=== PATIENT | male | born 1960 | race Caucasian/White ===

== ENCOUNTER 2020-03-09 14:36 | Emergency (ER) | payer OTHER, SELFPAY ==
[2020-03-09 14:38] VITALS: BP 172/92; PULSE 71; RESP 14; TEMP 36.9; O2SAT 98; BMI 25.8
--- NOTE | 2020-03-09 14:41 | DI.RAD.S_ITS ---
PROCEDURE: XR FINGER LT MIN 2V INDICATIONS: cut left thumb tablesaw TECHNIQUE: AP hand, 2 views of the left 1st finger(s) acquired. COMPARISON: None. FINDINGS: Bones: No fractures or dislocations. No suspicious bony lesions. Soft tissues: No suspicious soft tissue calcifications. No soft tissue gas or foreign bodies. IMPRESSION: No fracture. No osseous lesion. If symptoms and/or clinical suspicion for pathology persists, further assessment with advanced imaging (e.g. CT, MRI or bone scan) may be helpful. Dictated by: Selam Leavitt MD, PhD on 03/09/2020 at 15:02 Approved by: Selam Leavitt MD, PhD on 03/09/2020 at 15:03
--- NOTE | 2020-03-09 14:47 | ED_ITS ---
HPI - Wound/Laceration <HANY Church - Last Filed: 03/09/20 20:36> General Chief Complaint: Wound/Laceration Stated Complaint: cut left hand thumb Time Seen by Provider: 03/09/20 14:37 Source: patient Mode of arrival: Ambulatory Limitations: no limitations History of Present Illness HPI narrative: 59-year-old male presents emergency department for a laceration to his left thumb, he states he cut it on a table saw today. Patient states he was cutting wood, size small piece of wood in his cut that he was able to wash out. Patient states he wash the area extensively, applied bacitracin and a Band-Aid. Bleeding was controlled with pressure. He states his last Tdap has been a long time ago. He denies any numbness, tingling, difficulty moving his thumb, other injuries, fevers, chills, nausea, vomiting, diarrhea, or any other concerns. Patient states this happened approximately an hour ago. He denies any major allergies or medical issues. Related Data Allergies Allergy/AdvReac Type Severity Reaction Status Date / Time No Known Drug Allergies Allergy Verified 03/09/20 14:42 Review of Systems <HANY Church - Last Filed: 03/09/20 20:36> Review of Systems Narrative: REVIEW OF SYSTEMS: GENERAL: Denies fever or chills. HENT: Denies head trauma. EYE: Denies double vision or vision loss. CARDIOVASCULAR: Denies syncope. MUSCULOSKELETAL: Denies weakness, or deformities. INTEGUMENTARY: Complains of left thumb laceration, see HPI. NEURO: Denies numbness or tingling. Patient History <HANY Church - Last Filed: 03/09/20 20:36> Medical History No significant medical problems (Acute) Social History Smoking Status: Unknown if ever smoked Smoking Status: Unknown if ever smoked alcohol intake frequency: holidays/special occasions only Substance Use Type: does not use Exam <HANY Church - Last Filed: 03/09/20 20:36> Initial Vital Signs Initial Vital Signs: Vital Signs Temperature 98.5 F 03/09/20 14:38 Pulse Rate 71 03/09/20 14:38 Respiratory Rate 14 03/09/20 14:38 Blood Pressure 172/92 H 03/09/20 14:38 Pulse Oximetry 98 03/09/20 14:38 PHYSICAL EXAMINATION: GENERAL: Well groomed, alert, and cooperative. Answers questions promptly and appropriately. Vital signs noted. HENT: Normocephalic, atraumatic. RESPIRATORY: Normal respiratory rate, trachea midline, airway patent. No stridor, nasal flaring or accessory muscle use. MUSCULOSKELETAL: Full range of motion of thumb against resistance including the MIP and MCP joint. Intact light touch sensation intact to thumb to distal and proximal aspect of laceration. Normal gait and coordination. Equal tone and mass bilaterally. EXTREMITIES: CMS intact. Moves all extremities. SKIN: Warm, dry, soft, appropriate color for ethnicity. A 3 cm laceration to left palmar aspect of thumb above MIP joint, small amount of subcutaneous tissue visualized, no foreign bodies. Bleeding controlled with pressure upon arrival. NEURO: Alert and Oriented X 3. Good coordination. PSYCH: Appropriate affect and mood. <Melanie Crowell DO - Last Filed: 03/10/20 07:38> Initial Vital Signs Initial Vital Signs: Vital Signs Temperature 98.5 F 03/09/20 14:38 Pulse Rate 71 03/09/20 14:38 Respiratory Rate 14 03/09/20 14:38 Blood Pressure 172/92 H 03/09/20 14:38 Pulse Oximetry 98 03/09/20 14:38 Procedures <HANY Church - Last Filed: 03/09/20 20:36> Laceration Repair Laceration 1: Site: hand Side (If applicable): left Size (cm): 3 Description: linear Depth: simple, single layer Local Anesthetic: lidocaine 1% and with bicarb Amount of anesthesia used (mL): 5 Pre-repair: wound explored and irrigated extensively Skin layer closed with: nylon Size (cm): 4-0 Number of sutures: 6 Technique: simple, interrupted Course <HANY Church - Last Filed: 03/09/20 20:36> Course Course Narrative: Wound was irrigated extensively with >300ml of NS per nursing. Sutures place, bacitracin applied and wound dressed with tube gauze per nursing. Tdap updated. Orders Ordered: Discontinued Medications Bacitracin (Bacitracin) 1 applic TOP NOW ONE Stop: 03/09/20 14:48 Last Admin: 03/09/20 14:51 Dose: 1 applic Documented by: BRIAN Diphtheria/Tetanus/Acell Pertussis (Adacel) 0.5 ml IM .ONCE ONE Stop: 03/09/20 14:46 Last Admin: 03/09/20 14:51 Dose: 0.5 ml Documented by: BRIAN Lidocaine/Sodium Bicarbonate (Buffered Lidocaine 10 Ml Syr) 10 ml INJ NOW ONE Stop: 03/09/20 14:46 Last Admin: 03/09/20 14:51 Dose: 10 ml Documented by: BRIAN Vital Signs Vital signs: Vital Signs - 8 hr 03/09/20 14:38 03/09/20 15:55 Temperature 98.5 F Pulse Rate 71 53 L Respiratory Rate 14 Blood Pressure 172/92 H 155/92 H Pulse Oximetry 98 98 <Melanie Crowell DO - Last Filed: 03/10/20 07:38> Orders Ordered: Discontinued Medications Bacitracin (Bacitracin) 1 applic TOP NOW ONE Stop: 03/09/20 14:48 Last Admin: 03/09/20 14:51 Dose: 1 applic Documented by: BRIAN Diphtheria/Tetanus/Acell Pertussis (Adacel) 0.5 ml IM .ONCE ONE Stop: 03/09/20 14:46 Last Admin: 03/09/20 14:51 Dose: 0.5 ml Documented by: BRIAN Lidocaine/Sodium Bicarbonate (Buffered Lidocaine 10 Ml Syr) 10 ml INJ NOW ONE Stop: 03/09/20 14:46 Last Admin: 03/09/20 14:51 Dose: 10 ml Documented by: BRIAN Vital Signs Vital signs: Vital Signs - 8 hr 03/09/20 14:38 03/09/20 15:55 Temperature 98.5 F Pulse Rate 71 53 L Respiratory Rate 14 Blood Pressure 172/92 H 155/92 H Pulse Oximetry 98 98 MDM - Wound/Laceration <HANY Church - Last Filed: 03/09/20 20:36> Medical Records Attestation: I reviewed the patient's medical records. Lab Data Attestation: I reviewed the patient's lab results. Imaging Data Extremity x-ray #1: Radiologist's Impression: [address] [address] XRay Report Signed Patient: Juaquin Montenegro LMR#: [id number] : 9Acct:[id number] Age/Sex: 59 / MDate of Service: 03/09/20 Loc: ED Accession Number: [id number] Procedure: XR finger LT min 2V Ordering Provider: Justine Carey PROCEDURE: XR FINGER LT MIN 2V INDICATIONS: cut left thumb tablesaw TECHNIQUE: AP hand, 2 views of the left 1st finger(s) acquired. COMPARISON: None. FINDINGS: Bones: No fractures or dislocations. No suspicious bony lesions. Soft tissues: No suspicious soft tissue calcifications. No soft tissue gas or foreign bodies. IMPRESSION: No fracture. No osseous lesion. If symptoms and/or clinical suspicion for pathology persists, further assessment with advanced imaging (e.g. CT, MRI or bone scan) may be helpful. Dictated by: Selam Leavitt MD, PhD on 03/09/2020 at 15:02 Approved by: Selam Leavitt MD, PhD on 03/09/2020 at 15:03 [facility] Narrative Medical decision making narrative: 59-year-old male presenting to the emergency department for laceration of his left thumb, Simple laceration repair without concern of retained foreign body due to extensive irrigation, examination wound, and x-ray without concerns of bony involvement or foreign body. Wound was repaired with sutures. Dressed with bacitracin. No concern for tendon involvement due to intact range of motion against resistance without difficulty or pain or weakness. Patient was counseled extensively to watch for signs of infection and when to return. Patient agreed to plan of care verbalized understanding. Discharge Plan Departure Patient Disposition: Home Clinical Impression: Laceration Discharge Date/Time: 03/09/20 15:57 Instructions: DI for Laceration Repair Activity Restrictions/Additional Instructions: Thank you for entrusting me with your care today. As discussed, I have placed 6 sutures in your wound today. These will need to be removed in about 10-14 days. We have updated your tetanus. Your x-rays negative for any fractures or f oreign bodies. Please leave the dressing in place for the next 24 hours, after that you may remove the dressing, wash the area gently with soap and water and apply bacitracin. Cover the wound if you are for you may get dirty. While there is low-risk for infection at this time, retained foreign bodies and infection are always possible with any cut or break in the skin. Please monitor the wound closely and be re-evaluated immediately if you develop any signs of infection such as pus, increasing redness, increasing pain, fevers, or any other concerns. Return emergency department for any new or worsening symptoms. <Melanie Crowell, DO - Last Filed: 03/10/20 07:38> Cosign ED Attending Elina Attestation: I was immediately available in the department for consultation. Documentation has been reviewed. I agree with assessment and plan.
[2020-03-09] MEDS: BACITRACIN OINT 0.9 GM PCKT 1 APPLIC TOP (14:51)
[2020-03-09] MEDS: TET,DIPH,PERTUSS(ACELL),VAC/PF 0.5 ML SYRINGE IM (14:51)
[2020-03-09] MEDS: LIDO 1%/SOD BICARB 8.4% (10ML) 10 ML SYRINGE INJ (14:51)
[2020-03-09 15:55] VITALS: BP 155/92; PULSE 53; O2SAT 98
== END 2020-03-09 15:57 | disposition home or self-care (01) ==
PROVIDERS: Emergency Provider Nurse Practitioner
DX: S61.012A Laceration without foreign body of left thumb without damage to nail, initial encounter (principal); W29.3XXA Contact with powered garden and outdoor hand tools and machinery, initial encounter; Z23 Encounter for immunization
CPT/HCPCS: 12002; 73140; 90471; 99283; 99284; 90715

== ENCOUNTER 2020-03-31 10:15 | Emergency (ER) | payer OTHER, SELFPAY ==
[2020-03-31 10:32] VITALS: BP 152/86; PULSE 59; RESP 14; TEMP 36.7; O2SAT 98; BMI 25.1
--- NOTE | 2020-03-31 10:36 | DI.RAD.S_ITS ---
PROCEDURE: XR ANKLE LT MIN 3V INDICATIONS: ankle pain TECHNIQUE: 3 views of the ankle were acquired. COMPARISON: None. FINDINGS: Bones: No fractures or dislocations. Ankle mortise is normally aligned. No suspicious bony lesions. Soft tissues: Mild soft tissue swelling is demonstrated over the lateral malleolus. There is a small tibiotalar joint effusion. Achilles tendon appears normal. IMPRESSION: 1. No fracture or dislocation. Dictated by: Avi Ramsey M.D. on 03/31/2020 at 11:03 Approved by: Avi Ramsey M.D. on 03/31/2020 at 11:27
--- NOTE | 2020-03-31 11:45 | PC.NURSE ---
pt ambulatory back to room ice pack placed on left ankle
--- NOTE | 2020-03-31 11:57 | ED_ITS ---
HPI - Extremity Injury (Lower) <MAXIMINO Miguel - Last Filed: 03/31/20 15:02> General Chief Complaint: Extremity Injury, Lower Stated Complaint: Thinks he fractured his ankle or twisted it. Time Seen by Provider: 03/31/20 11:42 Source: patient Mode of arrival: Ambulatory Limitations: no limitations History of Present Illness HPI Narrative: The patient is a very pleasant 59-year-old male who does not use marijuana who presents with a chief complaint of an injury to his left ankle. He states he was walking and hit a ledge, twisting his ankle in. He endorses feeling a pop. He did not fall and states he did not hurt anything other than his ankle ?. Other than my pride he has not taken anything for pain. Denies any previous injuries to that ankle. States that her hurts a little bit, mostly on the outside part. He was able to ambulate after. He states he is ?limping. Related Data Allergies Allergy/AdvReac Type Severity Reaction Status Date / Time No Known Drug Allergies Allergy Verified 03/09/20 14:42 Review of Systems <MAXIMINO Miguel - Last Filed: 03/31/20 15:02> Review of Systems Narrative: GENERAL: Denies chills, fatigue, malaise, fever, sweats. HEENT: Denies sinus pain, ear pain, sore throat, difficulty swallowing, dizziness. RESPIRATORY: Denies dyspnea, cough, wheezing, hemoptysis, sputum. CARDIOVASCULAR: Denies chest pain, palpitations, orthopnea, edema, GASTROINTESTINAL: Denies nausea, vomiting, abdominal pain, diarrhea, constipation, melena. : Denies dysuria, frequency, incontinence, hematuria, urinary retention. MUSCULOSKELETAL: See HPI SKIN: Denies rash, skin lesions, or other NEUROLOGIC: Denies weakness, headache, numbness, change in speech, confusion, seizures, incoordination. PSYCHIATRIC: No concerning psychosocial issues. 12 point review of systems is negative except for those stated above Patient History <MAXIMINO Miguel - Last Filed: 03/31/20 15:02> Medical History No significant medical problems (Acute) Social History Smoking Status: Unknown if ever smoked Smoking Status: Unknown if ever smoked alcohol intake frequency: 0-2 drinks per day Substance Use Type: does not use Exam <MAXIMINO Miguel - Last Filed: 03/31/20 15:02> Narrative Exam Narrative: GENERAL: This is a well-nourished, well-developed patient, no acute distress HEAD: Atraumatic. Normocephalic. No temporal or scalp tenderness. EYES: Pupils equal round and reactive. Extraocular motions intact. No scleral icterus. No injection or drainage. ENT: Nose without bleeding, purulent drainage or septal hematoma. Throat without erythema, tonsillar hypertrophy or exudate. Uvula midline. Airway patent. NECK: Trachea midline. No JVD or lymphadenopathy. Supple, nontender, no meningeal signs. CARDIOVASCULAR: Regular rate and RESPIRATORY: No cough. No increased respiratory effort. No accessory muscle use. Speaking full sentences. EXTREMITIES: General pain to palpation left ankle, left lateral malleolus has some swelling, positive pedal pulses left foot. Able to flex extend pronate supinate left ankle, though decreased range of motion all hughes. BACK: Nontender without deformity or crepitance. No flank tenderness. NEURO: AOx3. SKIN: Left ankle skin is intact with no lacerations or abrasions. Ecchymosis noted by left lateral malleolus. Initial Vital Signs Initial Vital Signs: Vital Signs Temperature 98.0 F 03/31/20 10:32 Pulse Rate 59 L 03/31/20 10:32 Respiratory Rate 14 03/31/20 10:32 Blood Pressure 152/86 H 03/31/20 10:32 Pulse Oximetry 98 03/31/20 10:32 <Desiree Hernández MD - Last Filed: 03/31/20 16:18> Initial Vital Signs Initial Vital Signs: Vital Signs Temperature 98.0 F 03/31/20 10:32 Pulse Rate 59 L 03/31/20 10:32 Respiratory Rate 14 03/31/20 10:32 Blood Pressure 152/86 H 03/31/20 10:32 Pulse Oximetry 98 03/31/20 10:32 Procedures <MAXIMINO Miguel - Last Filed: 03/31/20 15:02> Orthopedic Splinting/Casting Injury #1: Side: left Lower Extremity Injury Location: ankle Lower Extremity Immobilizer: stirrup splint and Gavino wrap Post splinting neuro exam: intact Post splinting vascular exam: intact Placed by: Nursing Scores <MAXIMINO Miguel - Last Filed: 03/31/20 15:02> GCS Santosh coma scale eye opening: Spontaneous [place] coma scale verbal response: Orientated Santosh coma scale motor response: Obey commands Santosh coma scale total score: 15 Course <MAXIMINO Miguel - Last Filed: 03/31/20 15:02> Orders Ordered: ED Orders 03/31/20 10:36 XR ankle LT min 3V Stat Discontinued Medications Ibuprofen (Advil) 800 mg PO NOW ONE Stop: 03/31/20 11:57 Last Admin: 03/31/20 12:03 Dose: 800 mg Documented by: NOAH Vital Signs Vital signs: Vital Signs - 8 hr 03/31/20 10:32 Temperature 98.0 F Pulse Rate 59 L Respiratory Rate 14 Blood Pressure 152/86 H Pulse Oximetry 98 <Desiree Hernández MD - Last Filed: 03/31/20 16:18> Orders Ordered: ED Orders 03/31/20 10:36 XR ankle LT min 3V Stat Discontinued Medications Ibuprofen (Advil) 800 mg PO NOW ONE Stop: 03/31/20 11:57 Last Admin: 03/31/20 12:03 Dose: 800 mg Documented by: NOAH Vital Signs Vital signs: Vital Signs - 8 hr 03/31/20 10:32 Temperature 98.0 F Pulse Rate 59 L Respiratory Rate 14 Blood Pressure 152/86 H Pulse Oximetry 98 MDM - Extremity Injury (Lower) <MAXIMINO Miguel - Last Filed: 03/31/20 15:02> Differential Diagnosis Differential diagnosis: Likely ankle sprain and strain and ankle fracture Imaging Data Extremity x-ray #1: Radiologist's Impression: [address] [place] [id number] XRay Report Signed Patient: Juaquin Montenegro LMR#: [id number] : 9Acct:[id number] Age/Sex: 59 / MDate of Service: 03/31/20 Loc: ED Accession Number: [id number] Procedure: XR ankle LT min 3V Ordering Provider: Desiree Hernández MD PROCEDURE: XR ANKLE LT MIN 3V INDICATIONS: ankle pain TECHNIQUE: 3 views of the ankle were acquired. COMPARISON: None. FINDINGS: Bones: No fractures or dislocations. Ankle mortise is normally aligned. No suspicious bony lesions. Soft tissues: Mild soft tissue swelling is demonstrated over the lateral malleolus. There is a small tibiotalar joint effusion. Achilles tendon appears normal. IMPRESSION: 1. No fracture or dislocation. Dictated by: Avi Ramsey M.D. on 03/31/2020 at 11:03 Approved by: Avi Ramsey M.D. on 03/31/2020 at 11:27 [facility] Narrative Medical decision making narrative: The patient is a 59-year-old male who presents with a chief complaint of left ankle pain. He has no fracture on x- ray, is neurovascularly intact, is able to bear weight. I discussed at length rest ice compression elevation as well as [id number] pain medications as needed and able. The patient declined pain medication other than ibuprofen throughout his stay in the emergency department. I encouraged him to follow up with primary care provider in the next few days. Discussed that negative x-ray does not rule out ligament or tendon injury, however his range of motion is reassuring. Patient was placed in a air cast with Gavino bandage for support. Patient has no questions or concerns upon discharge and states understanding of return precautions as well as follow-up care. No questions or concerns upon discharge and is able to ambulate of the department independently. Discharge Plan Departure Patient Disposition: Home Clinical Impression: Ankle sprain and strain Ankle pain, left Qualifiers: Chronicity: acute Qualified Code(s): M25.572 - Pain in left ankle and joints of left foot Discharge Date/Time: 03/31/20 12:37 Instructions: DI for Ankle Sprain, How To Perform RICE (Rest, Ice, Compress, Elevate), DI for Ankle Pain Activity Restrictions/Additional Instructions: As I discussed, your x-ray shows no acute fracture. This does not rule out a soft tissue injury such as a ligament or tendon injury. It is important that you follow up with primary care provider, especially if worsening or no improvement. There can be fractures that did not show up on initial x-ray. As discussed, please follow-up with primary care provider in the next few days for re-evaluation. Please use rest ice compression elevation as well as [id number] pain medications as needed and able. Please be aware that too much activity might hinder healing or cause further injury <Desiree Hernández MD - Last Filed: 03/31/20 16:18> Cosign ED Attending [place] Attestation: I was immediately available in the department for consultation throughout this patient's visit. I agree with doc umentation as above. Desiree Hernández MD
[2020-03-31] MEDS: IBUPROFEN 400 MG TABLET 800 MG PO (12:03)
== END 2020-03-31 12:37 | disposition home or self-care (01) ==
PROVIDERS: Emergency Provider Nurse Practitioner Family
DX: S93.402A Sprain of unspecified ligament of left ankle, initial encounter (principal); S96.912A Strain of unspecified muscle and tendon at ankle and foot level, left foot, initial encounter; M25.572 Pain in left ankle and joints of left foot; W22.8XXA Striking against or struck by other objects, initial encounter
CPT/HCPCS: 29540; 73610; 99283